=== PATIENT | female | born 1975 | race Caucasian/White ===

== ENCOUNTER 2016-07-30 20:30 | Emergency (ER) | payer BC ==
[~2016-07-30] VITALS: Ht 167.6 cm; Wt 147.6 kg
[2016-07-30 21:13] LABS: INFLUENZA A VIRAL ANTIGEN NEGATIVE; INFLUENZA B VIRAL ANTIGEN NEGATIVE
[2016-07-30 21:19] LABS: HEMATOCRIT 45.9 % (36.0-46.0); MCH 32.7 PG (29.0-34.0); MCHC 35.9 G/DL (30.0-36.0); MCV 91.1 FL (83-99); PLATELET COUNT 266 K/uL (156-360); RBC DIS.WIDTH-SD 43.6 % (39-53); RED BLOOD COUNT 5.04 M/uL (3.80-5.20); WHITE BLOOD COUNT 7.4 K/uL (4.1-10.2)
[2016-07-30 21:30] LABS: CHLORIDE 96 mEq/L (99-109); POTASSIUM 2.9 mEq/L (3.7-5.4); SODIUM 136 mEq/L (136-147)
[2016-07-30 21:32] LABS: GLUCOSE 117 mg/dL (70-99)
[2016-07-30 21:33] LABS: ANION GAP 14 MEQ/L (2-14)
[2016-07-30 21:36] LABS: UREA NITROGEN (BUN) 11 mg/dL (9-23)
[2016-07-30 21:39] LABS: GFR ESTIMATE (CALCULATED) > 59 mL/min/
[2016-07-30] MEDS ORDERED: VENTOLIN HFA18 GM IH (22:28)
[2016-07-30] MEDS ORDERED: HYCODAN SYRUP480 ML PO (22:28)
[2016-07-30] MEDS ORDERED: PREDNISONE20 MG PO (22:28)
[2016-07-30] MEDS ORDERED: ZITHROMAX250 MG PO (22:28)
[2016-07-30 22:43] VITALS: BP 141/94
== END 2016-07-30 22:45 | disposition home or self-care (01) ==
LOC: EME 20:30
DX: J40 Bronchitis, not specified as acute or chronic (principal); R50.9 Fever, unspecified
CPT/HCPCS: 71020; 80048; 85027; 87502; 99281; 99284; J7512

== ENCOUNTER 2017-04-28 17:13 | Emergency (ER) | payer BC ==
[~2017-04-28] VITALS: Ht 167.6 cm; Wt 161.7 kg
[~2017-04-28 17:13] MED LIST: HYCODAN SYRUP480 ML PO; PREDNISONE20 MG PO; VENTOLIN HFA18 GM IH; ZITHROMAX250 MG PO
[2017-04-28] MEDS ORDERED: ZITHROMAX Z-PA250 MG PO (18:42)
[2017-04-28] MEDS ORDERED: PROAIR HFA8.5 GM IH (18:42)
[2017-04-28 18:59] VITALS: BP 144/84
== END 2017-04-28 19:00 | disposition home or self-care (01) ==
LOC: EME 17:13
DX: J20.9 Acute bronchitis, unspecified (principal); J45.909 Unspecified asthma, uncomplicated; E78.5 Hyperlipidemia, unspecified
CPT/HCPCS: 71046; 93005; 94640; 99281; 99284; J8540